=== PATIENT | male | born 1985 | race Caucasian/White ===

== ENCOUNTER → 2020-01-21 | Outpatient (CLI) | payer OTHER | LOC: COL.RAD 01-01 08:15 | DX: S83.242A Other tear of medial meniscus, current injury, left knee, initial encounter (principal); M71.22 Synovial cyst of popliteal space [Baker], left knee; Z98.890 Other specified postprocedural states ==

== ENCOUNTER 2020-12-08 01:22 | Emergency (ER) | payer OTHER ==
[~2020-12-08] VITALS: Ht 188 cm; Wt 111.4 kg
[2020-12-08 01:31] VITALS: TEMP 98.5
[2020-12-08 02:35] VITALS: BP 132/78; PULSE 76
== END 2020-12-08 02:35 | disposition home or self-care (01) ==
LOC: COL.ER 01:22
DX: M25.562 Pain in left knee (principal); Z88.5 Allergy status to narcotic agent
CPT/HCPCS: J1885; L1846

== ENCOUNTER → 2020-12-10 | Outpatient (CLI) | payer OTHER | LOC: COL.RAD 07:59 | DX: M75.101 Unspecified rotator cuff tear or rupture of right shoulder, not specified as traumatic (principal); S43.431A Superior glenoid labrum lesion of right shoulder, initial encounter ==